=== PATIENT | female | born 1965 | race Caucasian/White ===

== ENCOUNTER → 2016-09-25 | Outpatient (CLI) | payer MEDICARE, OTHER ==
[2016-09-25 13:13] LABS: Hemoglobin A1C 4.9 % (4.2-6.1)
== END ==
LOC: LABWHC1 08:00
PROVIDERS: ATTEND Internal Medicine Endocrinology, Diabetes & Metabolism
DX: R53.83 Other fatigue (principal); R73.9 Hyperglycemia, unspecified
CPT/HCPCS: 36415; 82533; 83036; 84439; 84443; 84480

== ENCOUNTER → 2016-09-27 | Outpatient (CLI) | payer MEDICARE, OTHER ==
[2016-10-04 08:47] LABS: Cortisol, Urine Free by LC-MS 19.5 ug/L
== END | disposition home or self-care (01) ==
LOC: LABWHC1 11:28
PROVIDERS: ATTEND Internal Medicine Endocrinology, Diabetes & Metabolism
DX: R53.83 Other fatigue (principal)
CPT/HCPCS: 82530

== ENCOUNTER → 2016-12-18 | Outpatient (CLI) | payer MEDICARE, OTHER ==
[2016-12-19 01:56] LABS: Gliadin AB IgA, Deaminated NEGATIVE (NEGATIVE); Gliadin AB IgG, Deaminated NEGATIVE (NEGATIVE); Gliadin AB IgG, Unit <0.4 U/mL; Tis Transglutaminase IgA Unit <0.5 AI; Tis Transglutaminase IgG Unit <0.8 U/mL
== END | disposition home or self-care (01) ==
LOC: LABWHC1 15:53
PROVIDERS: ATTEND Internal Medicine Gastroenterology
DX: R14.0 Abdominal distension (gaseous) (principal)
CPT/HCPCS: 36415; 83516

== ENCOUNTER → 2017-02-26 | Outpatient (CLI) | payer MEDICARE, OTHER ==
--- NOTE | 2017-02-26 22:12 | MR ---
EXAMINATION TYPE: MR brain wo con DATE OF EXAM: 02/26/2017 COMPARISON: Prior MRI brain February 21, 2014. 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 Low lying cerebellar tonsils pe r patient. TECHNIQUE: Multiplanar, multisequence imaging of the brain and brainstem is performed without IV cont rast. FINDINGS: Diffusion weighted images demonstrate no evidence of a recent infarct or other diffusion abnormality. There is no extraaxial fluid collection or significant white matter signal abnormality. The ventricu lar system and cisternal spaces are normal in size and appearance. The brain volume is age appropria te. T2 coronal weighted images show hippocampal gyri to appear symmetric and felt within normal limit s. Midline structures demonstrate normal morphology. The craniocervical junction appears within normal limits. No suspicious inferior distention of cerebellar tonsils is seen on sagittal image 10. Normal vascular flow voids are present. The visualized sinuses are clear and the globes are intact. IMPRESSION: Unremarkable study. No significant finding is seen to account for patient's symptoms.
== END | disposition home or self-care (01) ==
LOC: RADMRIMAIN 16:58
PROVIDERS: ATTEND Psychiatry & Neurology Neurology
DX: G40.209 Localization-related (focal) (partial) symptomatic epilepsy and epileptic syndromes with complex partial seizures, not intractable, without status epilepticus (principal)
CPT/HCPCS: 70551

== ENCOUNTER → 2017-08-01 | Outpatient (CLI) | payer MEDICARE ==
--- NOTE | 2017-08-01 17:06 | US ---
EXAMINATION TYPE: US pelvis complete transvag DATE OF EXAM: 08/01/2017 COMPARISON: CLINICAL HISTORY: R10.2 Pelvic Pain. Left side pain, hx of left ovarian cysts. Partial hysterectomy 1995--- still has both ovaries. TECHNIQUE: . Transabdominal sonographic images of the pelvis were acquired. Transvaginal sonographi c images were medically necessary to better assess the following anatomy: Right and left ovary Date of LMP: Unknown-- partial hysterectomy EXAM MEASUREMENTS: Left Ovary: 4.7 x 2.8 x 2.9 cm 1. Uterus: Surgically absent 2. Endometrium: Surgically absent 3. Right Ovary: Obscured by overlying bowel gas 4. Left Ovary: Two lesions seen. 1- simple appearing cystic lesion = 3.0 x 2.4 x 2.6 cm. 2- comple x cystic lesion = 2.1 x 2.9 x 1.9 cm 5. Bilateral Adnexa: wnl 6. Posterior cul-de-sac: no free fluid IMPRESSION: Simple and complex cysts are present on the left ovary. No free fluid.
== END | disposition home or self-care (01) ==
LOC: RADUSWWP 16:08
PROVIDERS: ATTEND Internal Medicine
DX: N83.202 Unspecified ovarian cyst, left side (principal)
CPT/HCPCS: 76830; 76856

== ENCOUNTER → 2017-11-12 | Outpatient (CLI) | payer MEDICARE ==
--- NOTE | 2017-11-12 16:29 | CT ---
EXAMINATION TYPE: CT abdomen pelvis w con DATE OF EXAM: 11/12/2017 COMPARISON: 08/16/2015 INDICATION: Lower abdominal pain, Ovarian cysts DLP: 1022 mGycm, Automated exposure control for dose reduction was used. CONTRAST: 100 mL of Isovue 300. Study performed with Oral Contrast TECHNIQUE: Axial images were obtained from above the diaphragm to the pubic rami in the axial plane a t 5 mm thick sections. Reconstructed images are reviewed on the computer in the coronal plane. FINDINGS: Limited CT sections are obtained the lung bases. The lung bases are clear. CT ABDOMEN: Liver: Normal Spleen: Normal Pancreas: Normal. Previous pancreas findings are not evident. Adrenal glands: The adrenal glands are normal. Gallbladder: Normal Kidneys: No masses are evident. No hydronephrosis is present. There is a 0.9 cm cyst measuring 8 Ho unsfield units. Tiny cortical renal cyst may be present inferior posterior right kidney. Delayed jeremiah ges were obtained through the kidneys, which remain unremarkable. Aorta: Vascular calcification is within the aorta. Inferior vena cava: Normal. CT PELVIS: Loops of bowel within the abdomen and pelvis are normal. There are loops of bowel which are incom pletely distended or lack oral contrast limiting their evaluation. Sigmoid colon is decompressed. Thi s appears somewhat tubular. Correlate for laxative abuse. Appendix: Normal as visualized. Urinary bladder: Normal. Genitourinary structures: Uterus is not identified. Adnexal regions are unremarkable. Osseous structures: No suspicious lytic or sclerotic lesions. There may be a bone island in the poste rior medial right ischio IMPRESSIONS: 1. Small cortical renal cysts. 2. Somewhat tubular appearance to the sigmoid colon which can be associated with excessive laxative u se. This was present on the prior examination.
== END | disposition home or self-care (01) ==
LOC: RADCTMAIN 13:25
PROVIDERS: ATTEND Internal Medicine
DX: N28.1 Cyst of kidney, acquired (principal); R93.3 Abnormal findings on diagnostic imaging of other parts of digestive tract
CPT/HCPCS: 74177; Q9967

== ENCOUNTER → 2018-02-23 | Outpatient (CLI) | payer MEDICARE ==
--- NOTE | 2018-02-23 15:24 | XR ---
EXAMINATION TYPE: XR chest 2V DATE OF EXAM: 02/23/2018 COMPARISON: NONE HISTORY: Cough and congestion TECHNIQUE: Frontal and lateral views of the chest are obtained. FINDINGS: There is no focal air space opacity, pleural effusion, or pneumothorax seen. The cardiac silhouette size is within normal limits. There is a mild spinal curvature. There is bronchial wall t hickening. The osseous structures are intact. IMPRESSION: Correlate for bronchitis, reactive airways disease, follow-up as indicated.
== END ==
LOC: RADXRYALE 13:14
PROVIDERS: ATTEND Internal Medicine
DX: R05 Cough (principal)
CPT/HCPCS: 71046

== ENCOUNTER → 2018-08-20 | Outpatient (CLI) | payer MEDICARE ==
--- NOTE | 2018-08-20 08:19 | CT ---
EXAMINATION TYPE: CT chest w con DATE OF EXAM: 08/20/2018 COMPARISON: NONE HISTORY: cough/bloating x [address] DLP: 211.7 mGycm. Automated Exposure Control for Dose Reduction was Utilized. TECHNIQUE: CT scan of the thorax is performed following with IV Contrast, patient injected with 100 mL of Isovue 300. FINDINGS: LUNGS: There is a 2 mm solid pulmonary nodule within the right upper lobe on series 4 image 34. Groun dglass appearance atelectasis is seen of the left upper lobe extending along the interlobar fissure b eginning on series 4 image 26 extending to image 31. Punctate pulmonary nodule is seen within the rig ht lower lobe near the interlobar fissure on series 4 image 44. Very minimal bibasilar subsegmental a telectasis is seen. No evidence of pulmonary fibrosis. No bronchiectasis. The lungs are grossly clear with no focal consolidation. There is no pleural effusion or pneumothorax seen. The tracheobronch ial tree is patent. MEDIASTINUM: There are no greater than 1 cm hilar or mediastinal lymph nodes. No pericardial effusi on is seen. Main pulmonary artery and ascending thoracic aorta are within normal limits measuring 2. 7 cm and 3.5 cm respectively. No significant coronary calcifications. OTHER: Postsurgical changes are seen in the gastroesophageal junction. Hepatic steatosis is noted. S mall splenules are noted adjacent to the new [place] spleen. IMPRESSION: 1. Very minimal subsegmental atelectasis scattered throughout the lungs. 2. Punctate 2 mm are pulmonary nodules. Follow-up could be performed in 12 months to ensure stability . 3. Postsurgical changes at the gastroesophageal junction and mild degree hepatic steatosis are noted in the upper abdomen.
== END | disposition home or self-care (01) ==
LOC: RADCTMAIN 06:47
PROVIDERS: ATTEND Internal Medicine
DX: J98.11 Atelectasis (principal); R91.8 Other nonspecific abnormal finding of lung field; Z98.890 Other specified postprocedural states
CPT/HCPCS: 71260; Q9967

== ENCOUNTER → 2020-03-23 | Outpatient (CLI) | payer MEDICARE ==
--- NOTE | 2020-03-23 20:35 | CT ---
EXAMINATION TYPE: CT chest wo con DATE OF EXAM: 03/23/2020 COMPARISON: Prior chest CT 08/20/2018 HISTORY: Follow up for pulmonary nodule. CT DLP: 352 mGycm. Automated Exposure Control for Dose Reduction was Utilized. TECHNIQUE: CT scan of the thorax is performed without IV contrast. FINDINGS: Lack of intravenous contrast could compromise sensitivity LUNGS: The lungs are grossly clear, there is no concerning parenchymal mass or nodule identified, sma ll 2 mm nodules are stable. There is no pleural effusion or pneumothorax seen. The tracheobronchia l tree is patent. MEDIASTINUM: Lack of IV contrast is noted to limit evaluation for mediastinal and especially hilar ad enopathy. There are no definitive greater than 1 cm hilar or mediastinal lymph nodes. No cardiomega ly or pericardial effusion is seen. OTHER: Postop changes are present at the gastroesophageal junction, there may be recurrence of a smal l hiatal hernia. Low dense focus within the left kidney likely represents cortical cyst. IMPRESSION: Benign noncontrast chest CT
== END | disposition home or self-care (01) ==
LOC: RADCTMAIN 16:59
PROVIDERS: ATTEND Internal Medicine
DX: R91.1 Solitary pulmonary nodule (principal)
CPT/HCPCS: 71250

== ENCOUNTER → 2021-01-18 | Outpatient (CLI) | payer MEDICARE ==
--- NOTE | 2021-01-18 11:00 | XR ---
EXAMINATION TYPE: XR soft tissue neck DATE OF EXAM: 01/18/2021 COMPARISON: NONE HISTORY: Possible foreign body TECHNIQUE: 2 view submitted FINDINGS: Postsurgical changes C5-C6 with degenerative changes C6-C7. No radio metallic foreign body identified. If there is concern for nonradiopaque foreign body correlate with direct visualization. IMPRESSION: See above
== END | disposition home or self-care (01) ==
LOC: RADXRYALE 10:30
PROVIDERS: ATTEND Internal Medicine
DX: M47.812 Spondylosis without myelopathy or radiculopathy, cervical region (principal)
CPT/HCPCS: 70360

== ENCOUNTER → 2021-02-23 | Outpatient (CLI) | payer MEDICARE ==
--- NOTE | 2021-02-26 12:01 | MM ---
Reason for exam: screening (asymptomatic). Last mammogram was performed 7 years and 1 month ago. History: Patient is postmenopausal. Physical Findings: A clinical breast exam by your physician is recommended on an annual basis and results should be correlated with mammographic findings. MG 3D Screening Mammo W/Cad Bilateral CC and MLO view(s) were taken. XCCL view(s) were taken of the right breast. Prior study comparison: February 02, 2014, bilateral MG screening mammo w CAD. The breast tissue is extremely dense which could obscure a lesion on mammography. No significant changes when compared with prior studies. ASSESSMENT: Benign, BI-RAD 2 RECOMMENDATION: Routine screening mammogram of both breasts in 1 year.
== END | disposition home or self-care (01) ==
LOC: RADMAMWWP 13:41
PROVIDERS: ATTEND Internal Medicine
DX: Z12.31 Encounter for screening mammogram for malignant neoplasm of breast (principal); Z78.0 Asymptomatic menopausal state
CPT/HCPCS: 77063; 77067

== ENCOUNTER → 2021-04-05 | Outpatient (CLI) | payer MEDICARE ==
--- NOTE | 2021-04-05 13:51 | MR ---
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 Technique: Multiplanar, multisequence images of the cervical spine were obtained before and after adm inistration of 5.5 mL intravenous Gadavist gadolinium contrast. FINDINGS: There is minimal 3 mm a right-sided cerebellar tonsillar ectopia. No tonsillar beaking or crowding of the foramen magnum. 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 Otherwise, no cran iocervical junction abnormality, predental space widening, or prevertebral soft tissue swelling. Mild multilevel degenerative disc disease with variable disc desiccation and mild posterior disc bulg ing. Findings are superimposed on a component of mild congenital spinal canal narrowing with AP canal dime nsion of 1 cm. There are postsurgical changes C5-C6 intervertebral disc prosthesis. There is metal artifact which pr ojects into the ventral spinal canal. When correlating with neck radiograph of the 1920, there seems to be some posterior disc osteophyte ridging at this level. Scattered mild facet and uncovertebral joint arthropathy. At C2-C3, mild facet arthropathy. No canal or foraminal stenosis. At C3-C4, mild facet arthropathy. No significant canal or foraminal stenosis. At C4-C5, there is a central disc protrusion which focally abuts and flattens the ventral cord causin g a mild central spinal canal stenosis. Mild facet and uncovertebral joint arthropathy especially on the left. Minimal left neuroforaminal narrowing. At C5-C6, the surgical level, residual posterior osteophytic ridging here may contribute to a mild sp inal canal stenosis. Assessment of the ventral cord is limited due to metal hardware artifact. Assess ment of the neuroforamina. At C6-C7, there is broad-based posterior disc protrusion eccentric towards the left with contiguous u ncovertebral joint and facet arthropathy. Changes may contribute to a severe left neuroforaminal sten osis along with a possible mild to moderate spinal canal stenosis with abutment of the ventral cord. No rajan cord flattening. At C7-T1, no canal or foraminal stenosis. Mild facet arthropathy. Normal signal intensity of the spinal cord. No abnormal enhancement seen within the spinal canal. IMPRESSION: 1. Status post C5-C6 intervertebral disc prosthesis. There may be some posterior osteophytic ridging at this level causing mild narrowing of the spinal canal. 2. Mild multilevel degenerative disc disease. Changes are superimposed on a mild congenital spinal ca nal narrowing. Possible mild to moderate spinal canal stenosis at C6-C7. Central disc herniation at C 4-C5 focally indents the ventral cord and contributes to mild central spinal canal stenosis. 3. Scattered mild facet and uncovertebral joint arthropathy. Prominent changes towards the left at C6 -C7 may contribute to a severe left foraminal stenosis.
== END | disposition home or self-care (01) ==
LOC: RADMRIMAIN 11:55
PROVIDERS: ATTEND Psychiatry & Neurology Neurology
DX: M48.02 Spinal stenosis, cervical region (principal); Q07.00 Arnold-Chiari syndrome without spina bifida or hydrocephalus; M50.223 Other cervical disc displacement at C6-C7 level
CPT/HCPCS: 72156

== ENCOUNTER → 2021-09-13 | Outpatient (CLI) | payer MEDICARE ==
--- NOTE | 2021-09-14 06:52 | MR ---
EXAMINATION TYPE: MR brain wo con DATE OF EXAM: 09/13/2021 COMPARISON: 02/26/2017 HISTORY: 56-year-old female G40.209, partial epilepsy, Arnold-chiari malformation, history of surgery , headaches, seizures. TECHNIQUE: Multiplanar, multisequence images of the brain and brainstem were acquired without IV con trast. Diffusion weighted imaging is performed. FINDINGS: No evidence for acute infarction, hemorrhage, mass, mass effect, midline shift, herniation, effacemen t of basal cisterns, or extra-axial fluid collection. There is moderate cortical volume loss along the bilateral cerebral convexities. No hydrocephalus. Major intracranial flow voids are intact. T2/FLAIR weighted sequences show only a couple scattered punctate subcortical white matter foci parti cularly in the left cerebral hemisphere. Appropriate symmetric hippocampal volume and appearance to the fornices. No evident luther matter heterotopia. Midline structures demonstrate normal morphology. There is 3 mm of left-sided cerebellar tonsillar ec topia and 5 mm on the right. No rajan tonsillar beaking. Otherwise, no craniocervical junction are no fernando. Post contrast images demonstrate no evidence of pathologic enhancement. Dural venous sinuses are pat ent. Mild to moderate mucosal thickening ethmoid air cells. Rightward nasal septal deviation. Globes are i ntact. IMPRESSION: 1. 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 Indeterminate between benign cerebellar t onsillar ectopia and Chiari I malformation on the right at 5 mm. No rajan tonsillar beaking. Further clinical correlation recommended. 2. Moderate volume loss along the bilateral cerebral convexities. Trace burden of chronic small vesse l ischemic disease. 3. No acute intracranial abnormality seen.
== END | disposition home or self-care (01) ==
LOC: RADMRIMAIN 11:22
PROVIDERS: ATTEND Psychiatry & Neurology Neurology
DX: G93.5 Compression of brain (principal); I67.82 Cerebral ischemia
CPT/HCPCS: 70551

== ENCOUNTER → 2022-03-19 | Outpatient (CLI) | payer MEDICARE ==
--- NOTE | 2022-03-20 07:36 | US ---
EXAMINATION TYPE: US carotid duplex BILAT DATE OF EXAM: 03/19/2022 COMPARISON: Renal ultrasound 02/17/2014. CLINICAL HISTORY: R42 DIZZINESS AND GIDDINESS. TECHNIQUE: Carotid duplex ultrasound examination. Indirect Doppler criteria was utilized. FINDINGS: EXAM MEASUREMENTS: RIGHT: Peak Systolic Velocity (PSV) cm/sec ----- Right CCA: 100.0 ----- Right ICA: 64.7 ----- Right ECA: 76.7 ICA/CCA ratio: 0.65 RIGHT: End Diastole cm/sec ----- Right CCA: 29.9 ----- Right ICA: 18.4 ----- Right ECA: 10.7 LEFT: Peak Systolic Velocity (PSV) cm/sec ----- Left CCA: 111.0 ----- Left ICA: 70.1 ----- Left ECA: 55.4 ICA/CCA ratio: 0.63 LEFT: End Diastole cm/sec ----- Left CCA: 35.9 ----- Left ICA: 24.8 ----- Left ECA: 8.9 VERTEBRALS (direction of flow): Right Vertebral: Antegrade Left Vertebral: Antegrade Rhythm: Normal INTER FOLD ROLL CUTTER NOTES: No significant stenosis seen Mild atherosclerotic plaque formation seen in the carotid arteries. IMPRESSION: Mild atherosclerotic plaque in the carotid arteries with no hemodynamically significant stenosis. Criteria for Assigning % of Stenosis / Diameter reduction (Estimation based on the indirect measurements of the internal carotid artery velocities (ICA PSV). 1. Normal (no stenosis)=ICA PSV < 125 cm/s: ratio < 2.0: ICA EDV<40 cm/s. 2. Less than 50% stenosis=ICA PSV < 125 cm/s: ratio < 2.0: ICA EDV<40 cm/s. 3. 50 to 69% stenosis=ICA PSV of 125 to 230 cm/s: ration 2.0 ? 4.0: ICA EDV 40-100 cm/s. 4. Greater than 70% stenosis to near occlusion= ICA PSV > 230 cm/s: ratio > 4.0: ICA EDV > 100 cm/s. 5. Near occlusion= ICA PSV velocities may be low or undetectable: variable ratio and ICA EDV. 6. Total occlusion=unable to detect flow.
== END | disposition home or self-care (01) ==
LOC: RADUSWWP 15:27
PROVIDERS: ATTEND Internal Medicine
DX: I65.23 Occlusion and stenosis of bilateral carotid arteries (principal)
CPT/HCPCS: 93880

== ENCOUNTER → 2022-04-03 | Outpatient (CLI) | payer MEDICARE ==
--- NOTE | 2022-04-03 15:08 | US ---
EXAMINATION TYPE: US thyroid st tissue head/neck DATE OF EXAM: 04/03/2022 COMPARISON: MRI cervical spine 2014 CLINICAL HISTORY: R22.1 LOCALIZED SWELLING, MASS AND LUMP, NECK. Patient states feeling a lump behind right jaw- it was bigger but has decreased in size. Area of concern scanned. Normal appearing lymph node seen with short axis- 0.6 cm. Contralateral images taken. Normal-appearing right submandibular lymph node. No concerning solid or cystic mass or fluid collecti on. Comparison views to left side performed at end of study. IMPRESSION: As above. No suspicious mass noted at the palpable site.
== END | disposition home or self-care (01) ==
LOC: RADUSWWP 13:33
PROVIDERS: ATTEND Internal Medicine
DX: R22.1 Localized swelling, mass and lump, neck (principal)
CPT/HCPCS: 76536

== ENCOUNTER → 2022-04-08 | Outpatient (CLI) | payer MEDICARE ==
--- NOTE | 2022-04-08 14:47 | MM ---
Reason for Exam: Additional evaluation requested from abnormal screening. Last screening mammogram was performed less than 1 month ago. Patient History: Menarche at age 11. First Full-Term at age 27. Hysterectomy at age 35. Postmenopausal. Risk Values: Genesis 5 year model risk: 1.5%. NCI Lifetime model risk: 8.5%. Prior Study Comparison: 06/23/2003 Bilateral Screening Mammogram, [facility]. 05/18/2007 Bilateral Diagnostic Mammogram, [facility]. 05/02/2011 Bilateral Screening Mammogram, [facility]. 02/02/2014 Bilateral Screening Mammogram, [facility]. 02/23/2021 Bilateral Screening Mammogram, [facility]. 04/03/2022 Bilateral MG 3D screening mammo w/cad, [facility]. Tissue Density: Left: The breast tissue is heterogeneously dense. This may lower the sensitivity of mammography. Findings: Analyzed By CAD. No new suspicious mass within the left breast. A few small scattered subtle round appearing calcifications demonstrated in the left breast. No distinct segmental distribution identified. Overall Assessment: Probably benign, BI-RAD 3 Management: Diagnostic Mammogram of the left breast in 6 months. A clinical breast exam by your physician is recommended on an annual basis and results should be correlated with mammographic findings. This exam should not preclude additional follow-up of suspicious palpable abnormalities. Results were given to the patient verbally at the time of exam. Electronically signed and approved by: Mark Walker D.O.
== END | disposition home or self-care (01) ==
LOC: RADMAMWWP 14:12
PROVIDERS: ATTEND Internal Medicine
DX: R92.8 Other abnormal and inconclusive findings on diagnostic imaging of breast (principal)
CPT/HCPCS: 77065; G0279; 77061

== ENCOUNTER → 2022-04-12 | Outpatient (CLI) | payer MEDICARE ==
--- NOTE | 2022-04-12 15:32 | CT ---
EXAMINATION TYPE: CT chest w con DATE OF EXAM: 04/12/2022 COMPARISON: 03/23/2020, 08/20/2018 HISTORY: SOLITARY PULMONARY NODULE CT DLP: 394 mGycm, Automated exposure control for dose reduction was used. CONTRAST: Performed injected with 70 mL of Isovue 300. TECHNIQUE: Axial images were obtained at 5 mm thick sections. Reconstructed images are reviewed on [employer] computer in the coronal plane. FINDINGS: Portion of the thyroid visualized is normal. Punctate densities in the periphery of the right upper lobe. Series 4 image 30. There is a punctate d ensity in the periphery of the posterior lateral left upper lobe. Series 4 image 30. No enlarged mediastinal or hilar adenopathy is evident. The ascending aorta diameter at the level o f the main pulmonary artery is 3.3 cm. The main pulmonary artery diameter at the bifurcation is 0.[address] sections are obtained through the upper abdomen. Abdomen is essentially unremarkable. IMPRESSIONS: 1. Couple of peripheral punctate nodularities, present previously are stable.
== END | disposition home or self-care (01) ==
LOC: RADCTMAIN 14:18
PROVIDERS: ATTEND Internal Medicine
DX: R91.8 Other nonspecific abnormal finding of lung field (principal)
CPT/HCPCS: 71260; Q9967

== ENCOUNTER → 2022-04-19 | Outpatient (CLI) | payer MEDICARE ==
--- NOTE | 2022-04-19 16:25 | MR ---
EXAMINATION TYPE: MR cspine/tspine/lspine wo con DATE OF EXAM: 04/19/2022 COMPARISON: MRI cervical and lumbar spine June 10, 2014 HISTORY: Pain in Cervical x1 year- DDD, CONGENITAL MALFORMATION OF NERVOUS SYSTEM TECHNIQUE: Multiplanar, multisequence imaging of the cervical, thoracic, and lumbar spine are all per formed without IV contrast. Cervical spine: FINDINGS: Sagittal images of the cervical spine show the craniocervical junction to remain within nor mal limits. Some artifact degradation at C5-C6 level otherwise the cervical spinal cord is normal in caliber and signal. Interval surgery with anterior fusion plate and metallic disc material at C5-C6 level causing streak artifact. Alignment is stable with slight grade 1 retrolisthesis C5 on C6 The ve rtebral body and intravertebral disk heights are normal above and below surgical levels. The bone ma rrow signal intensity is within normal limits above and below surgical levels. Axial images at C2-C3 level remain within normal limits. Axial images at C3-C4 level shows tiny central disc protrusion mildly effaces the anterior thecal sac axial image 42, no significant change from prior. Patent bilateral neural foramina. Axial images at C4-C5 level shows broad-based right paracentral disc protrusion effacing anterior the diane sac and ventral surface of spinal cord with new mild left-sided neural foraminal narrowing. Findi ng more prominent from prior. Some artifact degradation. Axial images at C5-C6 level are nondiagnostic due to blooming artifact. Similar finding noted C6-C7 l evel. Axial images at C7-T1 level remain within normal limits. IMPRESSION: Interval surgery C5-C6 level with stable alignment. Worsening degenerative change C4-C5 l evel noted. T-SPINE: FINDINGS: Coronal images show levoconvex scoliosis centered upper thoracic spine and reactive dextroc onvex scoliosis centered mid to lower thoracic spine. Spinal cord shows normal course, caliber, and signal as it courses the thoracic spine. Vertebral body heights remain satisfactory. No large intake coordinator ior disc herniation transvaginal images. Bone marrow signal intensity is preserved. Review of the axial images shows no significant spinal canal stenosis or neural foraminal narrowing a t any thoracic level. There is 1.0 cm simple appearing thin-walled cyst upper pole of the right kidne y axial image 5. There is nonspecific 1.1 cm slightly hyperintense lesion posteriorly upper pole left kidney axial image 2 . This was present on 2015 MRI suggesting benign etiology. IMPRESSION: S-shaped scoliosis otherwise unremarkable thoracic spine MRI. L-SPINE: Sagittal images of the lumbar spine show vertebral body heights to remain satisfactory. Alignment is stable and straightened. Slight scoliotic curvature. Multilevel disc desiccation with moderate disc s pace narrowing and heterogeneous Modic type II endplate changes at L4-L5 level. Mild/moderate anterio r spurring is seen at this level.. The conus medullaris is normal in position and signal ending super ior L1 level. Sqmp-kk-bmuekekx multilevel anterior spurring. Axial images show T12-L1 level to appear within normal limits. Axial images at L1-L2 level show poem-cn-noizzakn broad disc bulge mildly effacing the anterior theca l sac. Patent bilateral neural foramina findings more prominent from prior. Axial images at L2-L3 level remain normal limits. Axial images at L3-L4 level phon-hq-yngkfhpi facet arthropathy ligamentum flavum hypertrophy effacing the posterolateral thecal sac and mild broad disc bulge minimally effaces the anterior thecal sac pa tent bilateral neural foramina. Degenerative progression from prior study noted. Axial images at L4-L5 level show oalr-sw-hckkwmyv facet arthropathy bilaterally. There is right-sided laminectomy defect. There is broad-based left paracentral/foraminal disc protrusion. Minimal effacem ent of the left anterior thecal sac and mild left-sided inferior neural foraminal narrowing redemonst rated. No significant change from prior. Axial images at L5-S1 level show mild to moderate facet arthropathy bilaterally. There is focal centr al disc protrusion redemonstrated. Spinal canal is preserved as there is increased epidural fat. Ther e is cfrz-ks-sdupdecn bilateral neural foraminal narrowing redemonstrated. Findings on the left more prominent due to foraminal disc protrusion component axial image 2. There is normal size left ovary with prominent follicles axial image 3 for reference. IMPRESSION: Multilevel degenerative changes in the lumbar spine as detailed above with interval degen erative progression from 2015 MRI study noted.
== END | disposition home or self-care (01) ==
LOC: RADMRIMAIN 14:20
PROVIDERS: ATTEND Neurological Surgery
DX: M47.816 Spondylosis without myelopathy or radiculopathy, lumbar region (principal); M51.27 Other intervertebral disc displacement, lumbosacral region; M99.73 Connective tissue and disc stenosis of intervertebral foramina of lumbar region; M47.812 Spondylosis without myelopathy or radiculopathy, cervical region; M50.321 Other cervical disc degeneration at C4-C5 level; M41.84 Other forms of scoliosis, thoracic region; Q07.9 Congenital malformation of nervous system, unspecified
CPT/HCPCS: 72141; 72146; 72148

== ENCOUNTER → 2023-05-13 | Outpatient (CLI) | payer MEDICARE ==
--- NOTE | 2023-05-14 07:38 | US ---
EXAMINATION TYPE: US kidneys/renal and bladder DATE OF EXAM: 05/13/2023 COMPARISON: CT 2017, US 2011 CLINICAL INDICATION: Female, 58 years old with history of R31.9 HEMATURIA, UNSPECIFIED; EXAM MEASUREMENTS: Right Kidney: 9.5 x 3.6 x 4.8 cm Left Kidney: 10.3 x 4.2 x 3.9 cm Right Kidney: 1.5cm cystic area superior pole Left Kidney: 1.2cm cystic area superior pole, this contains a punctate echogenic focus. Fullness of r enal pelvis Bladder: wnl Bilateral Jets seen: yes IMPRESSION: 1. Simple appearing cyst superior pole right kidney. 2. Minimally complex cyst superior pole left kidney. Follow-up monitoring is recommended.
== END | disposition home or self-care (01) ==
LOC: RADUSWWP 15:34
PROVIDERS: ATTEND Internal Medicine
DX: N28.1 Cyst of kidney, acquired (principal); R31.9 Hematuria, unspecified
CPT/HCPCS: 76770

== ENCOUNTER → 2023-06-13 | Outpatient (CLI) | payer MEDICARE ==
--- NOTE | 2023-06-13 15:25 | CT ---
EXAMINATION TYPE: CT abdomen wo/w con DATE OF EXAM: 06/13/2023 COMPARISON: 11/12/2017 HISTORY: cy st on kidney CT DLP: 557.4 mGycm Automated exposure control for dose reduction was used. TECHNIQUE: Helical acquisition of images was performed from the lung bases through the top of iliac crest to include entire abdomen. CONTRAST: Performed with Oral Contrast and with IV Contrast, patient injected with 100 mL of Isovue 300. FINDINGS: The lung bases are clear. There is a 13 mm simple cortical cyst of the lower pole right kidney. In the mid kidney there is a 9. 5 mm somewhat ill-defined hypodensity not consistent with simple fluid. Cannot be characterized as si mple cyst. MRI of the kidneys is recommended for further evaluation. There is 11.7 mm simple cortical cyst of the upper pole left kidney. There is a small 3 to 4 mm hypod ensity in the mid left kidney too small to characterize with certainty but most likely represents a c yst. There is no renal calcification or hydronephrosis. There is no retroperitoneal adenopathy or hem orrhage in the caliber the abdominal aorta is normal. The gallbladder is normal is no biliary ductal dilatation. There is no focal mass or organomegaly involving the liver, pancreas, spleen or adrenal glands. The bowel loops are normal in caliber. There is no dilatation or obstruction. No inflammatory changes are identified in the bowel wall or mesentery. There is no free intraperitoneal air or fluid. The vi sualized osseous structures are intact. IMPRESSION: 1. Bilateral simple cortical renal cysts as described. 2. 9 mm hypodensity in the right kidney not consistent with a simple cyst. Likely benign but neoplasm not entirely excluded. MRI the kidneys is recommended for further evaluation.
== END | disposition home or self-care (01) ==
LOC: RADCTMAIN 13:17
PROVIDERS: ATTEND Urology
DX: N28.1 Cyst of kidney, acquired (principal); N28.89 Other specified disorders of kidney and ureter
CPT/HCPCS: 74170; Q9967

== ENCOUNTER → 2023-08-11 | Outpatient (CLI) | payer MEDICARE ==
--- NOTE | 2023-08-11 16:34 | XR ---
EXAMINATION TYPE: XR foot complete RT DATE OF EXAM: 08/11/2023 3:50 PM CLINICAL INDICATION:Female, 58 years old with history of [id number] RT FOOT PAIN; [facility] COMPARISON: None TECHNIQUE: XR foot complete RT examined in the AP, oblique, and lateral projections. FINDINGS: Accessory ossicle next to the cuboid. No evidence of any acute osseous pathology. No evidence of soft tissue swelling. Joints are preserve d. IMPRESSION: No evidence of acute fracture.
== END | disposition home or self-care (01) ==
LOC: RADXRYALE 15:37
PROVIDERS: ATTEND Internal Medicine
DX: M79.671 Pain in right foot (principal)

== ENCOUNTER → 2023-08-19 | Outpatient (CLI) | payer MEDICARE ==
--- NOTE | 2023-08-19 09:40 | CA ---
Transthoracic Echo Report Name: María Bassett Age: 58 Gender: F : 1965 Exam Date: 08/19/2023 08:24 Exam Location: [facility] Ht (in): 63 Wt (lb): 127 Ordering Physician: Vy Rivera MD Attending/Referring Phys: Casting Director Procedure CPT: Indications: R07.1 chest pain w/breathing Cardiac Hx: Technical Quality: Fair Contrast 1: Total Dose (mL): Contrast 2: Total Dose (mL): MEASUREMENTS (Male / Female) Normal Values 2D ECHO LV Diastolic Diameter PLAX 4.8 cm 4.2 - 5.9 / 3.9 - 5.3 cm LV Systolic Diameter PLAX 3.4 cm IVS Diastolic Thickness 0.8 cm 0.6 - 1.0 / 0.6 - 0.9 cm LVPW Diastolic Thickness 0.7 cm 0.6 - 1.0 / 0.6 - 0.9 cm LV Relative Wall Thickness 0.3 RV Internal Dim ED PLAX 2.5 cm LVOT Diameter 2.1 cm LV Diastolic Volume MOD BP 77.5 cm??? 67 - 155 / 56 - 104 cm??? LV Systolic Volume MOD BP 33.5 cm??? 22 - 58 / 19 - 49 cm??? LV Ejection Fraction MOD BP 56.7 % >= 55 % LV Cardiac Index MOD BP 1807.6 cm???/min???m??? LV Diastolic Volume MOD 4C 80.9 cm??? LV Systolic Volume MOD 4C 40.2 cm??? LV Ejection Fraction MOD 4C 50.4 % LV Cardiac Index MOD 4C 1675.1 cm???/min???m??? LV Diastolic Length 4C 7.1 cm LV Systolic Length 4C 6.2 cm LV Diastolic Volume MOD 2C 72.2 cm??? LV Systolic Volume MOD 2C 24.1 cm??? LV Ejection Fraction MOD 2C 66.7 % LV Cardiac Index MOD 2C 1978.4 cm???/min???m??? LV Diastolic Length 2C 7.3 cm LV Systolic Length 2C 5.3 cm LA Volume 27.7 cm??? 18 - 58 / 22 - 52 cm??? LA Volume Index 17.3 cm???/m??? 16 - 28 cm???/m??? Ascending Aorta Diameter 3.3 cm DOPPLER AV Peak Velocity 109.2 cm/s AV Peak Gradient 4.8 mmHg AV Mean Velocity 70.7 cm/s AV Mean Gradient 2.3 mmHg AV Velocity Time Integral 22.3 cm LVOT Peak Velocity 78.0 cm/s LVOT Peak Gradient 2.4 mmHg LVOT Velocity Time Integral 17.8 cm LVOT Stroke Volume 62.3 cm??? LVOT Stroke Volume Index 39.1 ml/m??? LVOT Cardiac Index 2560.9 cm???/min???m??? AV Area Cont Eq vti 2.8 cm??? AV Area Cont Eq pk 2.5 cm??? Mitral E Point Velocity 40.6 cm/s Mitral A Point Velocity 58.1 cm/s Mitral E to A Ratio 0.7 MV Deceleration Time 215.9 ms MV E' Velocity 6.4 cm/s Mitral E to MV E' Ratio 6.4 PV Peak Velocity 61.3 cm/s PV Peak Gradient 1.5 mmHg FINDINGS Left Ventricle Left ventricular ejection fraction is estimated at 55-60 %. Left ventricular cavity size normal. Left ventricular wall thickness normal. No obvious regional wall motion abnormalities. Right Ventricle Normal right ventricular size and function. Unable to estimate right ventricular systolic pressure. Right Atrium Normal right atrial size. Left Atrium Normal left atrial size. Mitral Valve Structurally normal mitral valve. No mitral stenosis, regurgitation or prolapse. Aortic Valve Trileaflet aortic valve. No aortic valve stenosis or regurgitation. Tricuspid Valve Structurally normal tricuspid valve. No tricuspid stenosis, regurgitation or prolapse. Pulmonic Valve Structurally normal pulmonic valve. No pulmonic stenosis. Trace pulmonic regurgitation. Pericardium No pericardial effusion. Aorta Normal size aortic root and proximal ascending aorta. CONCLUSIONS Left ventricular ejection fraction is estimated at 55-60 %. No obvious regional wall motion abnormalities. Normal LV size and function No significant valvular dysfunction No prior echo to compare with Previewed by: Dr Gokul Garcia (Electronically Signed) Final Date: 19 August 2023 09:39
--- NOTE | 2023-08-20 09:36 | CT ---
EXAMINATION TYPE: CT chest w con CT DLP: 151.4 mGycm, Automated exposure control for dose reduction was used. DATE OF EXAM: 08/19/2023 9:31 AM COMPARISON: Chest CT 04/12/2022 and 08/20/2018 Multiple CTs of the chest with most recent on 2 . CLINICAL INDICATION:Female, 58 years old with history of R91.1 pulmonary nodule; [facility], Pulmonary Nodul e TECHNIQUE: Multiple axial images were obtained through the chest. Sagittal and coronal reformats were created for review. Contrast used:100 ml mL of Isovue 370 with IV Contrast (None if empty) Oral contrast used: (None if empty) FINDINGS: LUNGS/ PLEURA: The lung parenchyma appears unremarkable. Previously discussed Punctate nodules in the right and the left lung are not Reidentified on the 5 mm slices. The left punctate nodule is visi ble on the 10 mm thick slices, series 9, image 15. The punctate nodule on the right isn't visible on the 10 mm thick slices, series 9, image 13. AIRWAY: Patent and unremarkable. HEART: Size within normal limits. MEDIASTINUM: No gross evidence of adenopathy. VASCULATURE: No aortic aneurysm. MUSCULOSKELETAL: No acute osseous abnormalities SOFT TISSUES/LYMPH NODES: Unremarkable. LOWER NECK: No significant findings. UPPER ABDOMEN: No significant findings. Simple cyst in the upper pole the right kidney requires no follow-up IMPRESSION: According to [employer] [place] [employer] or [employer], no addit ional pulmonary nodule follow-up recommended. Nodules showing stability since 2019. Follow up recommendations for incidental pulmonary nodules, if there are any, are per [employer] [place] [employer] [employer] or [employer]. [email or web address].org/[email or web address]?lang=us
== END | disposition home or self-care (01) ==
LOC: RADECHMAIN 08:10
PROVIDERS: ATTEND Internal Medicine
DX: R07.1 Chest pain on breathing (principal); R91.1 Solitary pulmonary nodule
CPT/HCPCS: 93306; 71260; Q9967

== ENCOUNTER → 2023-09-18 | Outpatient (CLI) | payer MEDICARE ==
--- NOTE | 2023-09-18 12:01 | CA ---
Exercise Stress Test Report Name: María Bassett Exam Date: 09/18/2023 11:21 Exam Location: [facility] Ht (in): 63 Wt (lb): 125 BSA: 1.58 Ordering Phys: Vy Rivera MD Referring Phys: VY RIVERA Technologist: Inderjit Grijalva Age: 58 Gender: F : 1965 Procedure CPT: Indications: R07.1 CHEST PAIN ON BREATHING ICD-10 Codes: Patient History: Chest pain and shortness of breath. Medications: Meds past 24 hrs: Pretest Chest Pain: STRESS TEST Petros Protocol Exercise Duration (min:sec): 03:[address] Depressions (mm): Angina Score: Ibrahim Score: Resting HR (bpm): 70 Peak HR (bpm): 146 Resting BP (mmHg): 143 / 92 Peak BP (mmHg): / 97 MPHR: 161 Target HR: 137 % MPHR: 91 METS: 4.7 Total Dose: Peak Dose: Atropine: Double Product: BP Response: Stress Termination: Reached target heart rate Stress Symptoms: No chest pain or symptoms Stress Summary: ECG ANALYSIS Resting ECG: Baseline EKG shows sinus rhythm inferolateral ST-T wave changes suggestive of ischemia Stress ECG: Patient exercised on Petros protocol for 3 minutes achieving 85% of predicted maximal heart rate without chest pain. There was significant worsening of baseline ST-T wave changes. CONCLUSIONS Exercise tolerance Inconclusive EKG part of the stress test due to baseline EKG abnormalities. Patient has abnormal baseline EKG and there was a [address] segment depression at peak exercise. Dr. Fernie Serrano MD (Electronically Signed) Final Date: 18 September 2023 12:00
== END | disposition home or self-care (01) ==
LOC: RADNMMAIN 10:23
PROVIDERS: ATTEND Internal Medicine
DX: R07.1 Chest pain on breathing (principal)
CPT/HCPCS: 93017

== ENCOUNTER → 2024-01-05 | Outpatient (CLI) | payer MEDICARE ==
--- NOTE | 2024-01-27 10:07 | US ---
EXAMINATION TYPE: US thyroid st tissue head/neck DATE OF EXAM: 01/27/2024 COMPARISON: 04/03/2022, 04/20/2022 CLINICAL INDICATION: Female, 59 years old with history of Localized Enlarged Lymph nodes; GLAND SIZE: Right Lobe: 4.0 x 1.1 x 1.3 cm Overall Parenchyma: homogeneous Left Lobe: 4.1 x 1.3 x 1.4 cm Overall Parenchyma: homogeneous Isthmus Thickness: 0.1 cm NODULES RIGHT: # of nodules measured on right: 0 LEFT: # of nodules measured on left: 0 ISTHMUS: # of nodules measured in the isthmus: 0 Bilateral neck scanned, lymph node noted right lateral neck; Hypoechoic area right submandibular gland = 0.6 x 0.4 x 0.6 cm IMPRESSION: 1. No thyroid nodules visualized. 2. Right submandibular hypoechoic area possibly relating to intraglandular lymph node or small mass not definitively seen on MRI 04/20/2022. Consider MRI as clinically warranted.
== END | disposition home or self-care (01) ==
LOC: RADUSWWP 12:09
PROVIDERS: ATTEND Internal Medicine
DX: R59.9 Enlarged lymph nodes, unspecified (principal)
CPT/HCPCS: 76536

== ENCOUNTER → 2024-02-03 | Outpatient (CLI) | payer MEDICARE ==
--- NOTE | 2024-02-03 13:21 | US ---
EXAMINATION TYPE: US abdomen complete DATE OF EXAM: 02/03/2024 COMPARISON: CT CLINICAL INDICATION: Female, 59 years old with history of R14.1 GAS PAIN; Pt states abdomen bloating and pain TECHNIQUE: Multiple sonographic images of the abdomen are obtained. FINDINGS: EXAM MEASUREMENTS: Liver Length: 15.9 cm Gallbladder Wall: 0.2 cm CBD: 0.6 cm Spleen: 7.2 cm Right Kidney: 11.1 x 4.0 x 4.2 cm Left Kidney: 10.4 x 4.8 x 4.6 cm RESIDENTIAL CASE MANAGER NOTES: Pancreas: wnl, tail obscured by overlying bowel gas Liver: wnl Gallbladder: wnl Evidence for sonographic Noble's sign: No CBD: Upper limits of normal Spleen: wnl Right Kidney: Anechoic lesion upper pole= 1.7 x 1.6 x 1.3 cm. no evidence of hydro . Measured 5-1 0 Hounsfield units by previous chest CT 08/19/2023 compatible simple cyst. Left Kidney: Small cystic lesion lateral= 1.0 x 0.7 x 1.2 cm, no evidence of hydro Upper IVC: wnl Abd Aorta: wnl IMPRESSION: 1. Hypoechoic upper pole right renal lesion stable from prior exam of 2022 likely related to renal cy sts.
--- NOTE | 2024-02-03 13:24 | US ---
EXAMINATION TYPE: US pelvic complete DATE OF EXAM: 02/03/2024 COMPARISON: US CLINICAL INDICATION: Female, 59 years old with history of R14.1 GAS PAIN; Pt states abdomen bloating TECHNIQUE: Transabdominal (TA). Transabdominal sonographic images of the pelvis were acquired. Date of LMP: age 31, partial hysterectomy EXAM MEASUREMENTS: Right Ovary: 1.8 x 1.4 x 1.8 cm Left Ovary: 2.0 x 1.7 x 2.1 cm cm 1. Uterus: Surgically absent 2. Endometrium: Surgically absent 3. Right Ovary: wnl 4. Left Ovary: Small, cystic lesion= 1.6 x 1.3 x 1.5 cm . Cystic lesion of the ovary in the differen tial diagnosis including simple cyst or cystic neoplasm of the ovary. 5. Bilateral Adnexa: wnl 6. Posterior cul-de-sac: wnl IMPRESSION: 1. Nonspecific 1.6 cm left adnexal cyst too small to characterize. Likely related to left ovary. Matthew mmend correlation with short-term follow-up ultrasound for resolution or MRI. 2. Postsurgical changes suggestive of hysterectomy.
== END | disposition home or self-care (01) ==
LOC: RADUSWWP 12:24
PROVIDERS: ATTEND Internal Medicine
DX: R14.0 Abdominal distension (gaseous) (principal); R10.2 Pelvic and perineal pain; M27.40 Unspecified cyst of jaw
CPT/HCPCS: 76700; 76856

== ENCOUNTER → 2024-02-04 | Outpatient (CLI) | payer MEDICARE ==
--- NOTE | 2024-02-04 12:23 | CT ---
EXAMINATION TYPE: CT soft tissue neck w con CT DLP: 287.1 mGycm, Automated exposure control for dose reduction was used. DATE OF EXAM: 02/04/2024 11:53 AM COMPARISON: CT chest 08/19/2023, thyroid ultrasound 01/05/2024. CLINICAL INDICATION:Female, 59 years old with history of M27.40 CYST JAW; [facility], Right side neck mass, abnormal ultrasound TECHNIQUE: Standard enhanced CT of the neck following intravenous administration of 100 cc of Isovue 300. Axial sections with coronal and sagittal reformats were obtained. FINDINGS: Brain: Visualized portions are grossly unremarkable. Orbits: Unremarkable Sinuses: Grossly unremarkable. Suprahyoid Neck: The oropharynx, oral cavity, parapharyngeal and retropharyngeal spaces are clear and symmetric. The nasopharynx is unremarkable. Infrahyoid Neck: The larynx, hypopharynx, and supraglottic area are clear and symmetric. Parotid Glands: Unremarkable. Submandibular Glands: The left submandibular gland is unremarkable. No discrete lesion identified wit hin the right submandibular gland corresponding to the ultrasound finding. Musculoskeletal: No acute osseous pathology. Bilateral shoulder arthropathy with calcified loose body along the anterior aspect of the right scapula near the joint. Postsurgical changes with disc cage a t C5-C6. Lymph nodes: No enlarged lymph nodes identified. Vascular structures: Visualized major arteries are patent without evidence of aneurysm. Thoracic Inlet/airway: Airway is patent. The lung apices are clear. Soft tissues/Thyroid: Thyroid and remainder of the soft tissues are unremarkable. Other: No focal abnormality identified at BB marker. IMPRESSION No CT evidence of right submandibular gland lesion corresponding to ultrasound finding. No abnormalit y identified at right neck palpable marker.
== END | disposition home or self-care (01) ==
LOC: RADCTMAIN 11:18
PROVIDERS: ATTEND Internal Medicine
DX: M27.40 Unspecified cyst of jaw
CPT/HCPCS: 70491

== ENCOUNTER → 2024-12-09 | Outpatient (CLI) | payer MEDICARE ==
--- NOTE | 2024-12-09 15:05 | MM ---
Reason for Exam: Screening (asymptomatic). Last mammogram was performed 2 year(s) and 8 month(s) ago. Patient History: Menarche at age 11. First Full-Term at age 27. Hysterectomy at age 35. Postmenopausal. Risk Values: Genesis 5 year model risk: 1.6%. NCI Lifetime model risk: 8.1%. Prior Study Comparison: 02/23/2021 Bilateral Screening Mammogram, [facility]. 04/03/2022 Bilateral MG 3D screening mammo w/cad, [facility]. 04/08/2022 Left MG 3D work up w/cad LT, [facility]. Tissue Density: The breasts are heterogeneously dense, which may obscure small masses. Findings: Analyzed By CAD. There is no suspicious group of microcalcifications or new suspicious mass in either breast. Overall Assessment: Negative, BI-RAD 1 Management: Screening Mammogram of both breasts in 1 year. . Patient should continue monthly self-breast exams. A clinical breast exam by your physician is recommended on an annual basis. This exam should not preclude additional follow-up of suspicious palpable abnormalities. Note on Genesis scores and lifetime risk: 1. A Genesis score greater than 3% is considered moderate risk. If this is the case, consider specialist referral to assess eligibility for a risk reducing agent. 2. If overall lifetime risk for the development of breast cancer is 20% or higher, the patient may qualify for future screening with alternating mammogram and breast MRI. [facility], , 12/09/2024 3:02 PM. Electronically signed and approved by: Sawyer Austin M.D.
== END | disposition home or self-care (01) ==
LOC: RADMAMWWP 13:07
PROVIDERS: ATTEND Internal Medicine
DX: Z12.31 Encounter for screening mammogram for malignant neoplasm of breast (principal); R92.333 Mammographic heterogeneous density, bilateral breasts; Z78.0 Asymptomatic menopausal state
CPT/HCPCS: 77063; 77067